=== PATIENT | female | born 1995 | race Two or more races ===

== ENCOUNTER → 2020-10-13 16:47 | Outpatient (CLI) | payer OTHER | END | disposition home or self-care (01) | LOC: PPH VACUNA 16:47 | DX: Z23 Encounter for immunization (principal) ==

== ENCOUNTER → 2020-11-03 15:19 | Outpatient (CLI) | payer OTHER | END | disposition home or self-care (01) | LOC: PPH VACUNA 15:19 | DX: Z23 Encounter for immunization (principal) ==